=== PATIENT | female | born 1960 | race Caucasian/White ===

== ENCOUNTER 2017-04-23 19:58 | Emergency (ER) | payer OTHER ==
[2017-04-23 20:03] VITALS: BP 142/73; PULSE 75; TEMP 98.3; BMI 31.8
--- NOTE | 2017-04-23 20:34 | PDOC ---
History of Present Illness - General History Source: Patient Exam Limitations: No Limitations <Alexey Castillo - Last Filed: 04/23/17 21:33> - General History Source: Patient Exam Limitations: No Limitations <ZoeShanamitchellGiovanaandra Barba - Last Filed: 04/23/17 23:01> - General Chief Complaint: Chest Pain Stated Complaint: CHEST AND BACK PAIN Time Seen by Provider: 04/23/17 20:29 - History of Present Illness Initial Comments: 04/23/17 21:33 Patient is a 57 year old female who presents to the ED with complaints of chest pain beginning 4 days prior to ED arrival. Patient reports feeling malaise over 4 days since. She reports pain in her back that she rates as a 5/10 in intensity, but does state it has woken her from sleep. She stated taking motrin which offered slight relief but alot. Patient reports back pack radiates to her chest. She reprots intermittent episodes of bilateral numbness as well as tingles in her arms secondary to chest and back pain. Patient reports intermittent periods of SOB secondary to chest and back pain. She states intermittent episodes of diarrhea and nausea, secondary to chest pain and back pain. She states she has been feeling anxious since symptoms have begun , as she normally does not get sick Denies constipation, urinary problems. Denies any other symptoms. PAST MEDICAL HISTORY: no significant history PAST SURGICAL HISTORY: no significant history FAMILY HISTORY: no pertinent history SOCIAL HISTORY: Pt lives with family and is employed. MEDICATIONS: reviewed ALLERGIES: As per nursing notes (Alexey Castillo) 04/23/17 22:57 A portion of this note was documented by scribe services under my direction. I have reviewed the details of the note, within reason, and agree with the documentation. The case summary and management plan written by me. Assessment and plan: This is a 57-year-old female who comes in complaining of intermittent episodes of back pain radiating to her chest times several weeks now. Patient is otherwise healthy and takes no medications. Patient said that the symptoms are associated with some shortness of breath but no diaphoresis or nausea. Patient's EKG shows showed normal sinus rhythm at a rate of 66, no acute ST-T wave changes and normal intervals, normal EKG Patient's chest x-ray showed no acute pathology Patient's troponin was negative and her d-dimer was negative a d-dimer done because patient has had this several days of travel recently Patient discharged home given copies of her blood work and will follow-up with her primary care doctor (Walter Olivares I) Past History <Alexey Castillo - Last Filed: 04/23/17 21:33> - Past Medical History Other medical history: DENIES - Psycho/Social/Smoking Cessation Hx Anxiety: No Suicidal Ideation: No Smoking History: Never smoked Hx Alcohol Use: No Drug/Substance Use Hx: No Substance Use Type: None <Walter Olivares I - Last Filed: 04/23/17 23:01> - Past Medical History Allergies/Adverse Reactions: Allergies Allergy/AdvReac Type Severity Reaction Status Date / Time No Known Allergies Allergy Verified 04/23/17 19:59 Home Medications: Ambulatory Orders NK [No Known Home Medication] 04/23/17 Review of Systems - Review of Systems Able to Perform ROS?: Yes All Other Systems: Reviewed and Negative <Alexey Castillo - Last Filed: 04/23/17 21:33> <Walter Olivares I - Last Filed: 04/23/17 23:01> - Review of Systems Comments:: 04/23/17 21:33 General: No fevers or chills, no weakness, no weight loss HEENT: No change in vision. No sore throat, No ear pain CardioVascular: +Chest pain. + SOB Respiratory:No cough, or wheezing. Gastrointestinal: +Nausea. + DIarrhea. No vomiting or constipation, No rectal bleeding Genitourinary: No dysuria, hematuria, or frequency Musculoskeletal: + Back pain. No joint pain or swelling Neurologic: No headache, vertigo, dizziness or loss of consciousness Psychiatric: nor depression Skin: No rashes or easy bruising Endocrine: no increased thirst or abnormal weight change Allergic: no skin or latex allergy All other systems reviewed and normal (Alexey Castillo) *Physical Exam <Alexey Castillo - Last Filed: 04/23/17 21:33> <Walter Olivares I - Last Filed: 04/23/17 23:01> - Vital Signs Last Vital Signs Temp Pulse Resp BP Pulse Ox 98.3 F 75 18 142/73 96 04/23/17 19:59 04/23/17 19:59 04/23/17 19:59 04/23/17 19:59 04/23/17 19:59 - Physical Exam Comments: 04/23/17 21:33 General: Well-nourished well-developed individual, no acute distress HEENT: Throat: Normal, tonsils normal, no erythema or exudate Neck: Supple, no meningeal signs, no lymphadenopathy Eyes::Pupils equal reactive and round, extraocular motion intact Chest: Nontender to palpation Cardiac: S1-S2 normal, regular rate and rhythm, no murmurs rubs or gallops Respiratory: Lungs clear to auscultation bilateral Abdomen: Soft, nondistended, normal bowel sounds, nontender to palpation diffusely Extremities: Warm, dry, no cyanosis, clubbing, or edema Skin: No rashes Neuro: Alert and oriented x3, nonfocal exam, grossly intact, normal gait Psych: Normal mood and affect (Alexey Castillo) Heart Score/ECG Review - History History: Slightly suspicious - Electrocardiogram EKG: Normal - Age Age: 45-65 - Risk Factors Based on the list above the patient has:: No risk factors known - Troponin Troponin: </= normal limit - Score Heart Score - Total: 1 <Walter Olivares I - Last Filed: 04/23/17 23:01> ED Treatment Course - LABORATORY CBC & Chemistry Diagram: 04/23/17 21:25 04/23/17 21:25 <Alexey Castillo - Last Filed: 04/23/17 21:33> - LABORATORY CBC & Chemistry Diagram: 04/23/17 21:25 04/23/17 21:25 <Walter Olivares I - Last Filed: 04/23/17 23:01> - ADDITIONAL ORDERS Additional order review: Laboratory Results 04/23/17 04/23/17 04/23/17 21:25 21:25 21:25 D-Dimer < 200 Sodium 139 Potassium 3.8 Chloride 108 H Carbon Dioxide 27 Anion Gap 4 L BUN 21 H Creatinine 1.1 Creat Clearance w eGFR 50.84 Random Glucose 103 Calcium 8.8 Total Bilirubin 0.4 AST 19 ALT 21 Alkaline Phosphatase 63 Creatine Kinase 69 Troponin I < 0.03 L Total Protein 6.4 Albumin 3.8 04/23/17 21:25 RBC 4.41 MCV 86.2 MCHC 34.7 RDW 12.0 MPV 8.6 Neutrophils % 55.4 Lymphocytes % 30.9 Monocytes % 7.8 Eosinophils % 4.5 Basophils % 1.4 - RADIOLOGY Radiology Studies Ordered: Category Date Time Status CHEST X-RAY PORTABLE* [RAD] Stat Radiology 04/23/17 21:25 Taken *DC/Admit/Observation/Transfer <Alexey Castillo - Last Filed: 04/23/17 21:33> - Discharge Dispostion Admit: No <Walter Olivares I - Last Filed: 04/23/17 23:01> Diagnosis at time of Disposition: Chest pain, atypical - Discharge Dispostion Disposition: HOME Condition at time of disposition: Stable - Patient Instructions Printed Discharge Instructions: DI for Atypical Chest Pain Additional Instructions: U can take Tylenol or Motrin as needed for the pain. Follow-up with your primary care doctor if symptoms persist. Return to the emergency department immediately with ANY new, persistent or worsening symptoms. Continue any medications as previously prescribed by your physician. You should follow up with your primary doctor as soon as possible regarding today's emergency department visit. . Please make sure your doctor reviews the results of your emergency evaluation. Thank you for coming to the Emergency Department today for your care. It was a pleasure to see you today. Please note that your evaluation is INCOMPLETE until you follow-up with your doctor. - Attestations Scribe Attestion: 04/23/17 21:34 Documentation prepared by Alexey Castillo, acting as director of medical staff services for Walter Olivares MD. (Alexey Castillo)
[2017-04-23 21:38] LABS: BASOPHIL 1.4 % (0-2.0); EOSINOPHIL 4.5 % (0-4.5); MCH 29.9 pg (25.7-33.7); MCHC 34.7 g/dl (32.0-36.0); MEAN CELL VOLUME 86.2 fl (80-96); MEAN PLT VOLUME 8.6 fl (7.5-11.1); NEUTROPHILS 55.4 % (42.8-82.8); PLATELET COUNT 259 K/MM3 (134-434); WHITE BLOOD COUNT 7.2 K/mm3 (4.0-10.8)
[2017-04-23 21:51] LABS: ALBUMIN 3.8 g/dl (3.5-5.0); ALK PHOS 63 U/L (32-92); ANION GAP 4 (8-16); BILIRUBIN,TOTAL 0.4 mg/dl (0.2-1.0); CALCIUM 8.8 mg/dl (8.4-10.2); CO2 27 mmol/L (22-28); CREATININE 1.1 mg/dl (0.6-1.3); GLUCOSE,RANDOM 103 mg/dl (74-106); SGOT/AST 19 U/L (10-42); SGPT/ALT 21 U/L (10-40); TOT PROT 6.4 g/dl (6.4-8.3)
[2017-04-23 22:35] LABS: CPK 69 IU/L (26-192)
[2017-04-23 22:48] LABS: TROPONIN I (DFP) < 0.03 ng/ml (0.03-0.50)
--- NOTE | 2017-04-24 10:24 | EKG ---
Test Reason : Blood Pressure : / mmHG Vent. Rate : 066 BPM Atrial Rate : 066 BPM P-R Int : 148 ms QRS Dur : 090 ms QT Int : 422 ms P-R-T Axes : 059 012 037 degrees QTc Int : 442 ms NORMAL SINUS RHYTHM POSSIBLE LEFT ATRIAL ENLARGEMENT INCOMPLETE RBBB NO PREVIOUS ECGS AVAILABLE Confirmed by LACEY LUGO, EMERALD ([id number] on 04/24/2017 10:24:10 AM Referred By: DR THAO Confirmed By:EMERALD RAHMAN MD
== END 2017-04-23 23:10 | disposition home or self-care (01) ==
LOC: FER 19:58
DX: R07.89 Other chest pain (principal)
CPT/HCPCS: 36415; 71010-TC; 80053; 84484; 85025; 85379; 93005; 99282-25

== ENCOUNTER 2020-09-16 10:13 | Emergency (ER) | payer OTHER ==
[2020-09-16 10:24] VITALS: BP 137/73; TEMP 98.9; BMI 26.5
[2020-09-16] MEDS ORDERED: IBUPROFEN 600 MG TABLET (FP) PO ONE ×2 (10:28→10:33)
[2020-09-16 10:39] VITALS: PULSE 82
[2020-09-16] MEDS ORDERED: LIDOCAINE HCL 1%, 10 MG/ML (50 mL VIAL) SQ ONE (11:05)
[2020-09-16] MEDS ORDERED: LIDOCAINE HCL 1%, 10 MG/ML (20ML VIAL) ONE (11:06)
== END 2020-09-16 11:43 | disposition home or self-care (01) ==
LOC: FER 10:13
PROC: 0RS Upper Joints, Reposition (ICD-10-PCS; principal; 2020-09-16)
DX: S52.602A Unspecified fracture of lower end of left ulna, initial encounter for closed fracture (principal)
CPT/HCPCS: 73110-TC-LT-FY; 73130-TC-LT-FY; 99285-25

== ENCOUNTER 2020-09-19 14:01 | Day surgery (SDC) | payer OTHER ==
[2020-09-18 14:45] VITALS: BMI 27.4
[2020-09-19] MEDS ORDERED: MIDAZOLAM HCL 2 MG/2 ML SINGLE DOSE VIAL ONE ×2 (14:25→15:41)
[2020-09-19] MEDS ORDERED: ROPIVACAINE HCL 0.5% 30ML VIAL ONE (14:25)
[2020-09-19] MEDS ORDERED: PROPOFOL 20 ML ONE (15:17)
[2020-09-19] MEDS ORDERED: ceFAZolin SODIUM 1 GM VIAL ONE (15:35)
[2020-09-19] MEDS ORDERED: GUM MASTIC/STORAX/MSAL/ALCOHOL 1 DRP DROPSBTL MC ONE (16:12)
[2020-09-19] MEDS ORDERED: ONDANSETRON 4 MG/2 ML VIAL IVPUSH PRN (16:31)
[2020-09-19] MEDS ORDERED: PROMETHAZINE HCL 25 MG/1 ML VIAL IVPUSH PRN (16:31)
[2020-09-19] MEDS ORDERED: oxyCODONE HCL 5 MG TABLET PO PRN (16:31)
[2020-09-19] MEDS ORDERED: LACTATED RINGERS SOLUTION 1,000 ML IV SCH (16:45)
[2020-09-19 16:52] VITALS: TEMP 97.7
[2020-09-19 17:25] VITALS: BP 112/62; PULSE 68
== END 2020-09-19 17:40 | disposition home or self-care (01) ==
LOC: FASU 14:01
PROVIDERS: ATTEND Orthopaedic Surgery Hand Surgery
PROC: 0PSJ04Z Reposition Left Radius with Internal Fixation Device, Open Approach (ICD-10-PCS; principal; 2020-09-19 15:45)
DX: S52.572A Other intraarticular fracture of lower end of left radius, initial encounter for closed fracture (principal); X58.XXXA Exposure to other specified factors, initial encounter; Y93.9 Activity, unspecified; Y92.9 Unspecified place or not applicable; Y99.9 Unspecified external cause status
CPT/HCPCS: 25609; C1713; 73110-TC-LT-FY; 73130-TC-LT-FY